=== PATIENT | male | born 2000 | race Hispanic/Latino ===

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

== ENCOUNTER 2022-03-02 12:54 | Emergency (ER) | payer OTHER | END 2022-03-02 15:48 | disposition home or self-care (01) | LOC: ERS 12:54 | DX: S80.02XA Contusion of left knee, initial encounter (principal); F17.210 Nicotine dependence, cigarettes, uncomplicated; V03.99XA Pedestrian with other conveyance injured in collision with car, pick-up truck or van, unspecified whether traffic or nontraffic accident, initial encounter | CPT/HCPCS: 70450; 72125 ==

== ENCOUNTER 2022-04-08 07:30 | Emergency (ER) | payer OTHER ==
[2022-04-08 08:49] LABS: Bacteria/HPF None Seen HPF (None Seen); Bilirubin 1+ (Negative); Blood, Urine 1+ (Negative); Clarity Clear (Clear); Glucose, Urine (Dipstick) Normal (Negative); Ketone, Urine 150 mg/dL (Negative); Leukocyte Negative Leu/uL (Negative); Nitrite Negative (Negative); Protein, Urine (Dipstick) 30 mg/dL (Neg-Trace); RBC/HPF 0-3 HPF (0-3); Specific Gravity, Urine 1.035 (1.002-1.036); Squamous Epithelial None Seen HPF (0-3); WBC/HPF 0-3 HPF (0-3)
[2022-04-08] MEDS ORDERED: cefTRIAXone\\ROCEPHIN 500 MG VIAL ONE (09:10)
[2022-04-08] MEDS ORDERED: Lidocaine 1% (PF) 30 ML VIAL ONE (09:53)
[2022-04-08 18:36] LABS: Chlam.trachomatis by PCR,Urine DETECTED (NotDetected)
== END 2022-04-08 10:15 | disposition home or self-care (01) ==
LOC: ERS 07:30
DX: R59.1 Generalized enlarged lymph nodes (principal); N34.2 Other urethritis; F17.210 Nicotine dependence, cigarettes, uncomplicated
CPT/HCPCS: 81003; 81015; 87491; 87591; 96372; 99283; J0696; J2001

== ENCOUNTER 2022-04-25 14:35 | Emergency (ER) | payer OTHER ==
[2022-04-25 16:21] LABS: #Lymphocytes 1.7 thou/uL (1.20-3.40); #Monocytes 0.7 thou/uL (0.11-0.59); %Basophils 0.4 % (0.0-1.0); %Eosinophils 0.2 % (0.0-10.0); %Lymphocytes 14.8 % (28.0-48.0); %Monocytes 6.1 % (0.0-4.0); %Neutrophils 78.4 % (31.0-61.0); Hemoglobin 16.1 g/dL (14.0-18.0); Mean Corpuscular HGB CONC 33.8 g/dL (32.0-36.0); Mean Corpuscular Hemoglobin 31.4 pg (25.0-35.0); Mean Corpuscular Volume 93.1 fL (78.0-98.0); Mean Platelet Volume 7.5 fL (7.4-10.4); Platelet Count 260 thou/uL (130-400); RBC Distribution Width 11.8 % (11.5-14.5); Red Blood Cell (RBC) Count 5.13 mill/uL (4.00-5.20); White Blood Cell (WBC) Count 11.4 thou/uL (4.8-10.8)
[2022-04-25 16:41] LABS: ALT (SGPT) 18 U/L (8-55); AST (SGOT) 24 U/L (5-34); Albumin 4.5 g/dL (3.5-5.0); Alkaline Phosphatase 95 U/L (50-130); Anion Gap 12 mmol/L (10-20); BUN (Urea Nitrogen) 17 mg/dL (8.9-20.6); Bilirubin, Total 1.2 mg/dL (0.2-1.2); Calc. Creatinine Clearance 0 mL/min (70-130); Calcium 9.5 mg/dL (7.8-10.44); Carbon Dioxide 26 mmol/L (22-29); Chloride 102 mmol/L (98-107); Estimated GFR 108; Globulin 3.3 g/dL (2.4-3.5); Glucose 80 mg/dL (70-105); Potassium 3.9 mmol/L (3.5-5.1); Protein, Total 7.8 g/dL (6.0-8.3); Sodium 136 mmol/L (136-145)
[2022-04-25] MEDS ORDERED: cefTRIAXone\\ROCEPHIN 500 MG VIAL ONE (17:15)
[2022-04-25] MEDS ORDERED: methylPREDNISolone Sod Succ 40 MG VIAL ONE (17:16)
[2022-04-25] MEDS ORDERED: Sterile Water 10 ML ONE (17:16)
[2022-04-26 00:32] LABS: Chlam.trachomatis by PCR,Urine Not Detected (NotDetected)
== END 2022-04-25 17:40 | disposition home or self-care (01) ==
LOC: ERS 14:35
DX: R59.0 Localized enlarged lymph nodes (principal); F17.210 Nicotine dependence, cigarettes, uncomplicated
CPT/HCPCS: 36415; 80053; 85025; 87491; 87591; 96372; 99283; J0696; J2920